=== PATIENT | male | born 1995 | race Caucasian/White ===

== ENCOUNTER 2017-07-25 08:22 | Day surgery (SDC) | payer MEDICAID ==
[~2017-07-25 08:22] MED LIST: Acetaminophen/HYDROcodone 325-5 MG Tab PO PRN; Bupivacaine 0.25%/EPINEPHrine 1:200,000 10 ML SDV INJECT ONE; Bupivacaine 25%/EPINEPHrine/PF 30 ML ONE; Clindamycin Phosphate in D5W 600 MG in Premix Bag 1 BAG IV ONE; Lactated Ringers 1,000 ML IV SCH; Oxymetazoline 0.05% Nasal Spray 15 ML Bottle ONE
[2017-07-25] MEDS ORDERED: Oxymetazoline 0.05% Nasal Spray 15 ML Bottle NAS ONE (09:00)
--- NOTE | 2017-07-25 09:18 | PCM.HP ---
H&P History of Present Illness - General Date of Service: 07/25/17 Admit Problem/Dx: rhinoplasty - cleft Source of Information: Patient, Old Records History Limitations: Reports: No Limitations - History of Present Illness Initial Comments - Free Text/Narative: cleft rhinoplasty today. All questions answered and history and physical repeated as outside of 30 days. Duration of Symptoms: Reports: Constant Location: Reports: Head, Face Severity: Moderate Improves with: Reports: None Worsens with: Reports: None Associated Symptoms: Reports: No Other Symptoms - Related Data Allergies/Adverse Reactions: Allergies Allergy/AdvReac Type Severity Reaction Status Date / Time Sulfa (Sulfonamide Allergy Cannot Verified 07/19/15 11:54 Antibiotics) Remember Home Medications: Home Meds . [No Known Home Meds] 07/13/17 [History] Past Medical History HEENT History: Reports: Impaired Vision Other HEENT History: wears glasses Cardiovascular History: Reports: None Respiratory History: Reports: None Gastrointestinal History: Reports: None Genitourinary History: Reports: None Musculoskeletal History: Reports: Fracture Other Musculoskeletal History: hx of fx elbow and thumb rt hand Neurological History: Reports: None Psychiatric History: Reports: None Endocrine/Metabolic History: Reports: None Hematologic History: Reports: None Immunologic History: Reports: None Oncologic (Cancer) History: Reports: None Dermatologic History: Reports: None - Past Surgical History Head Surgeries/Procedures: Reports: None HEENT Surgical History: Reports: Other (See Below) Other HEENT Surgeries/Procedures: repair of cleft lip and cleft palate, also wisdom teeth extraction Cardiovascular Surgical History: Reports: None Respiratory Surgical History: Reports: None GI Surgical History: Reports: None Male Surgical History: Reports: None Endocrine Surgical History: Reports: None Neurological Surgical History: Reports: None Musculoskeletal Surgical History: Reports: Other (See Below) Other Musculoskeletal Surgeries/Procedures:: hx of closed displaced fx of shaft of first metacarpal bone of rt hand Oncologic Surgical History: Reports: None Dermatological Surgical History: Reports: None Social & Family History - Tobacco Use Smoking Status *Q: Never Smoker - Recreational Drug Use Recreational Drug Use: No Drug Use in Last 12 Months: No H&P Review of Systems - Review of Systems: Review Of Systems: See Below General: Reports: No Symptoms HEENT: Reports: Other (cleft nose). Denies: Sinus Congestion Cardiovascular: Reports: No Symptoms Gastrointestinal: Reports: No Symptoms Genitourinary: Reports: No Symptoms Musculoskeletal: Reports: No Symptoms Skin: Reports: No Symptoms Psychiatric: Reports: No Symptoms Exam - Exam Exam: See Below - Vital Signs Weight: 160 lb - Exam General: Alert, Oriented, Cooperative HEENT: EOMI, Nares Patent (with cleft on the left minor obstruction) Neck: Supple Lungs: Clear to Auscultation, Normal Respiratory Effort Cardiovascular: Regular Rate, Regular Rhythm GI/Abdominal Exam: Soft Extremities: Normal Inspection, Normal Range of Motion Skin: Warm, Dry Neuro Extensive - Mental Status: Alert, Oriented x3, Normal Mood/Affect, Normal Cognition *Q Meaningful Use (ADM) - VTE *Q VTE Criteria *Q: VTE Anticoagulation Contraindications: Med/TX Not Indicated/Need - VTE Risk Assess *Q Each Risk Factor Represents 1 Point: Minor Surgery Planned Total Score 1 Point Risk Factors: 1 Each Risk Factor Represents 2 Points: None Total Score 2 Point Risk Factors: 0 Each Risk Factor Represents 3 Points: None Total Score 3 Point Risk Factors: 0 Each Risk Factor Represents 5 Points: None Total Score 5 Point Risk Factors: 0 Venous Thromboembolism Risk Factor Score *Q: 1 - Stroke *Q Stroke Criteria *Q: Anticoagulation Contraindications Stroke *Q: Med/TX Not Indicated/Need Antithrombotic Contraindications Stroke *Q: Med/TX Not Indicated/Need Thrombolytic/Fibrinolytic Contraindications Stroke *Q: Med/TX Not Indicated/Need Statin Contraindications Stroke *Q: Med/TX Not Indicated/Need Rehabilitation Assessment Contraindication *Q: Med/tx not indicated/need - AMI *Q AMI Criteria *Q: Aspirin Contraindications AMI *Q: Med/TX Not Indicated/Need Thrombolytic/Fibrinolytic Contraindications IV (AMI) *Q: Med/tx not indicated/ need Statin Contraindications AMI *Q: Med/TX Not Indicated/Need - Problem List (1) Cleft nose SNOMED Code(s): 237037120 ICD Code: Q30.2 - FISSURED, NOTCHED AND CLEFT NOSE Status: Acute Current Visit: Yes Problem List Initiated/Reviewed/Updated: Yes Orders Last 24hrs: Active Orders 24 hr Category Date Time Status Antiembolic Devices [RC] PER UNIT ROUTINE Care 07/25/17 09:00 Active Verify Patient Consent Obtain [RC] ASDIRECTED Care 07/25/17 08:00 Active Nothing Per Oral Diet [DIET] Diet 07/25/17 Breakfast Active Acetaminophen/HYDROcodone [Ray 325-5 MG] Med 07/25/17 08:00 Active 1 tab PO Q4H PRN Cocaine [Cocaine HCl] Med 07/25/17 10:00 Once 4 ml TOP ONETIME ONE Lactated Ringers [Ringers, Lactated] 1,000 ml Med 07/25/17 08:00 Active IV ASDIRECTED PAS [Sequential Compression Device] [OM.PC] Routine Oth 07/25/17 09:00 Ordered Resuscitation Status Routine Resus Stat 07/24/17 17:03 Ordered Medication Orders Hydrocodone Bitart/Acetaminophen (Ray 325-5 Mg) 1 tab PO Q4H PRN PRN Reason: Pain Cocaine HCl (Cocaine Hcl) 4 ml TOP ONETIME ONE Stop: 07/25/17 10:01 Lactated Ringer's (Ringers, Lactated) 1,000 mls @ 125 mls/hr IV ASDIRECTED SANTIAGO Last Admin: 07/25/17 08:51 Dose: 125 mls/hr Assessment/Plan Comment:: to OR today for cleft rhinoplasty. All questions answered and informed consent obtained.
--- NOTE | 2017-07-25 09:25 | PCM.PREANE ---
Preanesthetic Assessment - Anesthesia/Transfusion/Family Hx Anesthesia History: Prior Anesthesia Without Reaction Family History of Anesthesia Reaction: No Transfusion History: No Prior Transfusion(s) - Review of Systems General: No Symptoms Pulmonary: No Symptoms Cardiovascular: No Symptoms Gastrointestinal: No Symptoms Neurological: No Symptoms Other: Reports: None - Physical Assessment NPO Status Date: 07/24/17 Height: 1.7 m Weight: 72.575 kg ASA Class: 1 Mental Status: Alert & Oriented x3 Dentition: Reports: Normal Dentition (with braces) ROM/Head Extension: Full Lungs: Clear to Auscultation, Normal Respiratory Effort Cardiovascular: Regular Rate, Regular Rhythm - Allergies Allergies/Adverse Reactions: Allergies Allergy/AdvReac Type Severity Reaction Status Date / Time Sulfa (Sulfonamide Allergy Cannot Verified 07/19/15 11:54 Antibiotics) Remember - Anesthesia Plan Pre-Op Medication Ordered: None - Acknowledgements Anesthesia Type Planned: General Anesthesia Pt an Appropriate Candidate for the Planned Anesthesia: Yes Alternatives and Risks of Anesthesia Discussed w Pt/Guardian: Yes Pt/Guardian Understands and Agrees with Anesthesia Plan: Yes PreAnesthesia Questionnaire HEENT History: Reports: Impaired Vision Other HEENT History: wears glasses Cardiovascular History: Reports: None Respiratory History: Reports: None Gastrointestinal History: Reports: None Genitourinary History: Reports: None Musculoskeletal History: Reports: Fracture Other Musculoskeletal History: hx of fx elbow and thumb rt hand Neurological History: Reports: None Psychiatric History: Reports: None Endocrine/Metabolic History: Reports: None Hematologic History: Reports: None Immunologic History: Reports: None Oncologic (Cancer) History: Reports: None Dermatologic History: Reports: None - Past Surgical History Head Surgeries/Procedures: Reports: None HEENT Surgical History: Reports: Other (See Below) Other HEENT Surgeries/Procedures: repair of cleft lip and cleft palate, also wisdom teeth extraction Cardiovascular Surgical History: Reports: None Respiratory Surgical History: Reports: None GI Surgical History: Reports: None Male Surgical History: Reports: None Endocrine Surgical History: Reports: None Neurological Surgical History: Reports: None Musculoskeletal Surgical History: Reports: Other (See Below) Other Musculoskeletal Surgeries/Procedures:: hx of closed displaced fx of shaft of first metacarpal bone of rt hand Oncologic Surgical History: Reports: None Dermatological Surgical History: Reports: None - SUBSTANCE USE Smoking Status *Q: Never Smoker Tobacco Use Within Last Twelve Months: No Recreational Drug Use History: No - HOME MEDS Home Medications: Home Meds . [No Known Home Meds] 07/13/17 [History] - CURRENT (IN HOUSE) MEDS Current Meds: Current Medications Hydrocodone Bitart/Acetaminophen (Waldo 325-5 Mg) 1 tab PO Q4H PRN PRN Reason: Pain Cocaine HCl (Cocaine Hcl) 4 ml TOP ONETIME ONE Stop: 07/25/17 10:01 Lactated Ringer's (Ringers, Lactated) 1,000 mls @ 125 mls/hr IV ASDIRECTED SANTIAGO Last Admin: 07/25/17 08:51 Dose: 125 mls/hr Discontinued Medications Bupivacaine HCl/Epinephrine Bitart (Marcaine 0.25%/Epinephrine 1:200,000) 10 ml INJECT ONETIME ONE Stop: 07/25/17 08:01 Clindamycin Phosphate 600 mg/ (Premix) 50 mls @ 150 mls/hr IV ONETIME ONE Stop: 07/25/17 08:19 Last Admin: 07/25/17 09:23 Dose: 150 mls/hr Bupivacaine HCl/Epinephrine Bitart (Sensorc Mpf 0.25%-Epi 1:[id number]) Confirm Administered Dose 30 mls @ as directed .ROUTE .STK-MED ONE Stop: 07/25/17 07:31 Oxymetazoline HCl (Afrin Original 0.05% Nasal [place]) 1 ml ISA ONETIME ONE Stop: 07/25/17 09:01 Oxymetazoline HCl (Afrin Original 0.05% Nasal [place]) Confirm Administered Dose 15 ml .ROUTE .STK-MED ONE Stop: 07/25/17 07:31
[2017-07-25] MEDS ORDERED: Ondansetron 4 MG/2 ML SDV ONE (10:40)
[2017-07-25] MEDS ORDERED: Lidocaine 2% 5 ML SDV ONE (10:40)
[2017-07-25] MEDS ORDERED: fentaNYL 250 MCG/5 ML SDV ONE (10:40)
[2017-07-25] MEDS ORDERED: Midazolam 1 MG/ML 2 ML SDV ONE (10:40)
[2017-07-25] MEDS ORDERED: Propofol 200 MG/20 ML SDV ONE ×2 (10:40→11:47)
[2017-07-25] MEDS ORDERED: Rocuronium 10 MG/ML 10 ML Syringe ONE (10:40)
[2017-07-25] MEDS ORDERED: fentaNYL 100 MCG/2 ML SDV IVPUSH PRN (11:36)
[2017-07-25] MEDS ORDERED: fentaNYL 100 MCG/2 ML SDV ONE (12:07)
--- NOTE | 2017-07-25 14:25 | PCM48HPAN ---
Post Anesthesia Note - EVALUATION WITHIN 48HRS OF ANESTHETIC Vital Signs in Normal Range: Yes Patient Participated in Evaluation: Yes Respiratory Function Stable: Yes Airway Patent: Yes Cardiovascular Function Stable: Yes Hydration Status Stable: Yes Pain Control Satisfactory: Yes Nausea and Vomiting Control Satisfactory: Yes Mental Status Recovered: Yes Resp Rate: 11
--- NOTE | 2017-07-25 14:25 | PCM.POSTAN ---
POST ANESTHESIA ASSESSMENT - MENTAL STATUS Mental Status: Alert, Oriented - RESPIRATORY Respiratory Status: Respiratory Rate WNL, Airway Patent, O2 Saturation Stable - CARDIOVASCULAR CV Status: Pulse Rate WNL, Blood Pressure Stable - GASTROINTESTINAL GI Status: No Symptoms - POST OP HYDRATION Hydration Status: Adequate & Stable
[2017-07-25 15:18] VITALS: BP 144/85
--- NOTE | 2017-07-25 17:16 | PCM.OPNOTE ---
- General Post-Op/Procedure Note Date of Surgery/Procedure: 07/25/17 Operative Procedure(s): bilateral cleft rhinoplasty Pre Op Diagnosis: cleft nose deformity Post-Op Diagnosis: Same Anesthesia Technique: General ET Tube, Local Primary Surgeon: Leonora Joy Shrimp Trawler: Melissa Myers Complications: None Condition: Good Free Text/Narrative:: Intake & Output 07/25/17 07/25/17 07/25/17 07:59 15:59 23:59 Intake Total 1800 Balance 1800
--- NOTE | 2017-07-26 17:19 | OR ---
SURGEON: BRAVO GIANG MD DATE OF PROCEDURE: 07/25/2017 PREOPERATIVE DIAGNOSIS: Left cleft nose deformity. POSTOPERATIVE DIAGNOSIS: Left cleft nose deformity. PROCEDURE: Bilateral cleft rhinoplasty. DISPATCHER MAINTENANCE: LIANET Guzman. ANESTHESIA: General ET tube with local and cocaine. INDICATIONS: Mr. Cruz is a 22-year-old gentleman seen today in evaluation for bilateral cleft rhinoplasty. Risks and benefits of intervention were discussed with him and he is in agreement to proceed. Risks were including, but not limited to, bleeding, infection, damage to underlying or overlying structures, possible need for future interventions, possible scarring. Preoperative vector analysis was completed as well. All questions answered. PROCEDURE IN DETAIL: After informed consent was obtained and placed on the chart, the patient was brought to the operating theater and laid in supine position. After adequate general anesthesia was obtained, 4% cocaine on pledgets was placed intranasally after the patient had self-administered Afrin in the preanesthesia area. These were allowed to set while 0.25% Marcaine with epinephrine was used in a field block of the nose. Once adequate anesthesia, attention was then paid to marking of the columellar incision. This was done and carried intranasally with care taken to free up the lower lateral cartilages for meticulous exposure. Once adequately exposed, dissection was carried more proximally on to the upper lateral cartilages and the dorsal nasal area. Dorsal nasal retractor was placed and all of the craft structures were freed. Attention was then paid to a stab incision at the lower left lateral ala and a synch stitch with a 3-0 Prolene was placed from the alar lateral border through the septal spine area. This was secured using a [id number] suture and tied down without difficulty. A minimal amount of skin was excised in the previous cleft lip scar in order to allow appropriate closure over top of this. This was closed with 5-0 chromic stitch in a horizontal mattress fashion. Once adequately closed here, this allowed rounding of the freed lower lateral cartilage into a more anatomic position. Once adequately re-oriented, attention was then paid to interdermal and transdermal sutures to obtain symmetry of the nasal tip. Once this was completed, the skin was redraped and symmetry was appreciated. Once the cartilages were secured in appropriate position, the area was copiously irrigated and the skin redraped. Closure was obtained in the columellar section using 6-0 Prolene in an interrupted fashion. The intranasal closure was completed with 5-0 chromic stitch in an interrupted fashion. Nasal shaping stitches were then placed on the left nasal alar crease and tip to allow re- draping and quilting of the skin to promote contraction and healing down. Once this was completed, nasal passages were appreciated to be open and clear using a butter knife. No additional work was needed on the turbinates or septum. Once on completion of the rhinoplasty, intranasal splints were placed using lubrication and Steri-Strips were placed on the top of the nose with a dorsal nasal splint, secured in place with Steri-Strips. A drip pad was placed as well. The patient tolerated the procedure well. All counts and needles were correct at the end of the case. FOLLOWUP INSTRUCTIONS: The patient will see us next week in clinic for removal of the intranasal splints, sooner if any problems, questions, or concerns. He was given instruction for cleansing, showering and will call with any questions or concerns. He was given a prescription for pain control. AMANDA / RAMIRO /[id number]
== END 2017-07-25 15:00 | disposition home or self-care (01) ==
LOC: MW.SDS 08:22
PROVIDERS: ATTEND Plastic Surgery
DX: Q30.2 Fissured, notched and cleft nose (principal); Z88.2 Allergy status to sulfonamides; Z98.890 Other specified postprocedural states
CPT/HCPCS: 30400; A9270; J2250; J2405; J3010; J7120; 00160; J2704